=== PATIENT | male | born 1980 | race Hispanic/Latino ===

== ENCOUNTER 2017-04-17 10:13 | Day surgery (SDC) | payer BC ==
[2017-04-08 14:48] VITALS: BMI 46.5
--- NOTE | 2017-04-17 13:50 | OP ---
SURGEON: Mac Mcconnell M.D. DISASTER RECOVERY MANAGER SURGEON: None. PROCEDURE PERFORMED: Esophagogastroduodenoscopy, diagnostic. INDICATION: 1. Upper abdominal pain. 2. Heartburn. 3. Abdominal bloating. FINDINGS: After discussion of the risks, benefits and alternatives of the procedure, informed consen t was obtained and witnessed. Pre-endoscopic cardiopulmonary examination was satisfactory. Timeout was performed before sedation was achieved. Sedation was achieved with anesthesia assistance in the endoscopy unit. A Pentax adult upper endoscope was placed into the oropharynx and passed through the cricopharyngeus under direct visualization. The esophageal mucosa appeared normal throughout with a normal-appearing Z-line. The endoscope was then advanced into the stomach. Forward and retroflexed views of the entire gastric mucosa were obtained. The gastric mucosa appeared normal. There was no evidence of any erosions or ulcerations. No mucosal abnormalities. The endoscope was advanced thro ugh the pylorus and into the first and second portions of the duodenum, which also appeared normal, m ajor and minor ampulla were reviewed and appeared normal on forward view. The upper endoscope was th en completely withdrawn and the patient allowed to recover. The patient tolerated the procedure well . There were no immediate post-procedure complications. IMPRESSION: 1. Normal esophagogastroduodenoscopy. 2. Suspect the patient's pain is musculoskeletal in origin from the abdominal wall. RECOMMENDATIONS: 1. Trial of daily PPI for the next month. 2. Obtain a CT scan of the abdomen. 3. Follow up in GI clinic in 1 month.
== END 2017-04-17 14:30 | disposition home or self-care (01) ==
LOC: SDC 10:13
PROVIDERS: ATTEND Internal Medicine
PROC: 0DJ08ZZ Inspection of Upper Intestinal Tract, Via Natural or Artificial Opening Endoscopic (ICD-10-PCS; principal; 2017-04-17)
DX: R10.12 Left upper quadrant pain (principal); R10.11 Right upper quadrant pain; R12 Heartburn; R14.0 Abdominal distension (gaseous); E66.9 Obesity, unspecified; Z68.42 Body mass index [BMI] 45.0-49.9, adult

== ENCOUNTER 2017-04-28 08:13 | Outpatient (CLI) | payer BC ==
[2017-04-28] MEDS ORDERED: Iopamidol 370 76% 100 ML VIAL ONE (13:40)
== END 2017-04-28 08:14 | disposition home or self-care (01) ==
LOC: BICCT 08:13
PROVIDERS: ATTEND Internal Medicine
DX: R10.84 Generalized abdominal pain (principal); K21.9 Gastro-esophageal reflux disease without esophagitis
CPT/HCPCS: 74160